=== PATIENT | female | born 1960 | race Caucasian/White ===

== ENCOUNTER → 2017-03-24 | Outpatient (CLI) | payer BC | LOC: MC.RAD 08:20 | DX: Z12.31 Encounter for screening mammogram for malignant neoplasm of breast (principal); N63.20 Unspecified lump in the left breast, unspecified quadrant ==

== ENCOUNTER → 2017-03-30 | Outpatient (CLI) | payer BC | LOC: MC.RAD 11:00 | DX: R92.0 Mammographic microcalcification found on diagnostic imaging of breast (principal); R92.1 Mammographic calcification found on diagnostic imaging of breast ==

== ENCOUNTER → 2017-04-12 | Outpatient (CLI) | payer BC | LOC: MC.RAD 08:26 | DX: R92.0 Mammographic microcalcification found on diagnostic imaging of breast (principal) ==

== ENCOUNTER → 2018-04-18 | Outpatient (CLI) | payer BC | LOC: MC.RAD 11:40 | DX: Z12.31 Encounter for screening mammogram for malignant neoplasm of breast (principal); Z98.82 Breast implant status ==

== ENCOUNTER → 2019-04-29 | Outpatient (CLI) | payer BC | LOC: MC.RAD 11:15 | DX: Z12.31 Encounter for screening mammogram for malignant neoplasm of breast (principal); Z98.82 Breast implant status ==

== ENCOUNTER 2020-02-14 10:54 | Day surgery (SDC) | payer BC ==
[~2020-02-14] VITALS: Ht 177.8 cm; Wt 138.8 kg
[2020-02-14 11:38] VITALS: BP 178/112; PULSE 94; TEMP 98.3
[2020-02-14] MEDS ORDERED: GLUCOPHAGE500 MG/TAB PO (11:45)
[2020-02-14] MEDS ORDERED: HYZAAR 25 MG-101 TAB PO (11:46)
[2020-02-14 12:10] VITALS: BP 133/58; PULSE 79
--- NOTE | 2020-02-14 12:10 | NUR ---
Patient returns to [facility] and is awake and alert. Temp 98.2 and room air sats 94%. Denies abdominal pain or nausea. IV fluids infusing. Spouse in room.
[2020-02-14 12:25] VITALS: BP 116/63; PULSE 83
--- NOTE | 2020-02-14 12:25 | NUR ---
Eating muffin and drinking juice.
--- NOTE | 2020-02-14 12:35 | NUR ---
Dr. Sandoval here to talk with the patient.
[2020-02-14 12:40] VITALS: BP 121/75; PULSE 71
--- NOTE | 2020-02-14 12:40 | NUR ---
Tolerated muffin and juice. Denies pain and nausea. IV discontinued and site is free of redness. Given dismissal instructions and voices understanding of these. Instructed to begin Benef[employer] over the counter.
--- NOTE | 2020-02-14 12:55 | NUR ---
Patient dressed and dismissed to home driven by spouse and taken to the front door per wheelchair and assisted into vehicle by this RN with dismissal instructions in hand.
== END 2020-02-14 12:55 | disposition home or self-care (01) ==
LOC: SDCO 10:54
DX: Z12.11 Encounter for screening for malignant neoplasm of colon (principal); K57.30 Diverticulosis of large intestine without perforation or abscess without bleeding; Z88.0 Allergy status to penicillin; E78.00 Pure hypercholesterolemia, unspecified; E11.9 Type 2 diabetes mellitus without complications; I10 Essential (primary) hypertension; Z90.710 Acquired absence of both cervix and uterus
CPT/HCPCS: J2250; J2405; J3010; J7030

== ENCOUNTER → 2020-05-22 | Outpatient (CLI) | payer BC ==
[~2020-05-22] MED LIST: GLUCOPHAGE500 MG/TAB PO; HYZAAR 25 MG-101 TAB PO
== END ==
LOC: MC.RAD 08:15
DX: Z12.31 Encounter for screening mammogram for malignant neoplasm of breast (principal)

== ENCOUNTER → 2021-06-25 | Outpatient (CLI) | payer BC | LOC: MC.RAD 09:12 | DX: Z12.31 Encounter for screening mammogram for malignant neoplasm of breast (principal) ==

== ENCOUNTER → 2023-09-05 | Outpatient (CLI) | payer BC | LOC: MC.RAD 09:26 | DX: Z12.31 Encounter for screening mammogram for malignant neoplasm of breast (principal) ==